=== PATIENT | male | born 1985 | race Caucasian/White ===

== ENCOUNTER 2018-05-20 09:44 | Emergency (ER) | payer MEDICAID ==
[~2018-05-20] VITALS: Ht 170.2 cm; Wt 79.4 kg
[2018-05-20 09:50] VITALS: BP_SYST 147
--- NOTE | 2018-05-20 09:50 | NUR ---
Pt placed in bed 6
--- NOTE | 2018-05-20 09:55 | NUR ---
ER at bedside examining patient.
[2018-05-20 10:18] VITALS: BP_SYST 147
--- NOTE | 2018-05-20 10:18 | NUR ---
Patient given written and verbal discharge instructions and verbalizes understanding. ER MD discussed with patient the results and treatment provided. Patient in stable condition. ID arm band removed. Rx of naproxen and tramadol given. Patient educated on pain management and to follow up with PMD. Pain Scale 5. Dr Harrison is aware, pain prescription was given and pt states will take medication at home. Opportunity for questions provided and answered.
== END 2018-05-20 10:18 | disposition home or self-care (01) ==
LOC: SED 09:44
DX: S46.911A Strain of unspecified muscle, fascia and tendon at shoulder and upper arm level, right arm, initial encounter (principal); R03.0 Elevated blood-pressure reading, without diagnosis of hypertension; Z86.79 Personal history of other diseases of the circulatory system; X50.0XXA Overexertion from strenuous movement or load, initial encounter; Y93.89 Activity, other specified; Y92.89 Other specified places as the place of occurrence of the external cause; Y99.8 Other external cause status
CPT/HCPCS: 99283

== ENCOUNTER 2018-05-27 11:25 | Emergency (ER) | payer MEDICAID ==
[~2018-05-27] VITALS: Ht 170.2 cm; Wt 79.4 kg
[2018-05-27 11:32] VITALS: BP_SYST 147
[2018-05-27 11:59] VITALS: BP_SYST 147
== END 2018-05-27 12:01 | disposition home or self-care (01) ==
LOC: SED 11:25
DX: K02.9 Dental caries, unspecified (principal)
CPT/HCPCS: 99283

== ENCOUNTER 2018-05-29 14:36 | Emergency (ER) | payer MEDICAID ==
[~2018-05-29] VITALS: Ht 170.2 cm; Wt 79.4 kg
[2018-05-29 14:36] VITALS: BP_SYST 140
[2018-05-29 16:00] VITALS: BP_SYST 134
== END 2018-05-29 16:01 | disposition home or self-care (01) ==
LOC: SED 14:36
DX: K08.89 Other specified disorders of teeth and supporting structures (principal)
CPT/HCPCS: 99283

== ENCOUNTER 2018-08-03 11:41 | Emergency (ER) | payer SELFPAY ==
[~2018-08-03] VITALS: Ht 170.2 cm; Wt 77.1 kg
[2018-08-03 11:50] VITALS: BP_SYST 140
--- NOTE | 2018-08-03 11:53 | NUR ---
Patient to ER bed 08 to gown for evaluation. Side rails up.
--- NOTE | 2018-08-03 11:57 | NUR ---
ER at bedside examining patient.
--- NOTE | 2018-08-03 12:11 | NUR ---
Pt AAOx4 ambulated into ED c/o 05/15 R shoulder pain x 5 days. Pt has hx of R rotator cuff injury and is concerned "there might be a broken bone or something." Pt has been taking ibuprofen with no relief. Skin pink dry and warm, breathing even and unlabored. No other injuries/complaints per pt/noted. Will continue to monitor.
--- NOTE | 2018-08-03 12:15 | NUR ---
Radiology at bedside
--- NOTE | 2018-08-03 12:40 | NUR ---
Sling provided. Cap refill <3 prior and post application
[2018-08-03 12:44] VITALS: BP_SYST 137
--- NOTE | 2018-08-03 12:44 | NUR ---
Patient given written and verbal discharge instructions and verbalizes understanding. ER MD Malave discussed with patient the results and treatment provided. Patient in stable condition. ID arm band removed. Rx of Tramadol given. Patient educated on pain management and to follow up with PMD. Pain Scale 0. Opportunity for questions provided and answered. Medication side effect fact sheet provided.
== END 2018-08-03 12:44 | disposition home or self-care (01) ==
LOC: SED 11:41
DX: S46.001A Unspecified injury of muscle(s) and tendon(s) of the rotator cuff of right shoulder, initial encounter (principal); R03.0 Elevated blood-pressure reading, without diagnosis of hypertension; Z86.79 Personal history of other diseases of the circulatory system; X50.1XXA Overexertion from prolonged static or awkward postures, initial encounter; Y93.89 Activity, other specified; Y92.89 Other specified places as the place of occurrence of the external cause; Y99.8 Other external cause status
CPT/HCPCS: 73030; 99283

== ENCOUNTER 2018-08-12 16:03 | Emergency (ER) | payer SELFPAY ==
[~2018-08-12] VITALS: Ht 170.2 cm; Wt 77.1 kg
[2018-08-12 16:32] VITALS: BP_SYST 140
[2018-08-12] MEDS ORDERED: KETOROLAC TROMETHAMINE 60 MG/2 ML VIAL IM ONE (17:00)
[2018-08-12 17:40] VITALS: BP_SYST 140
== END 2018-08-12 17:40 | disposition home or self-care (01) ==
LOC: SED 16:03
DX: M25.511 Pain in right shoulder (principal); R03.0 Elevated blood-pressure reading, without diagnosis of hypertension; Z86.79 Personal history of other diseases of the circulatory system
CPT/HCPCS: 96372; 99283; J1885

== ENCOUNTER 2018-12-15 18:37 | Emergency (ER) | payer OTHER ==
[~2018-12-15] VITALS: Ht 170.2 cm; Wt 80.7 kg
[2018-12-15 19:08] VITALS: BP_SYST 141
[2018-12-15] MEDS ORDERED: KETOROLAC TROMETHAMINE 60 MG/2 ML VIAL IM ONE (20:15)
[2018-12-15] MEDS ORDERED: cefTRIAXone 1 GM VIAL IM ONE (20:15)
[2018-12-15] MEDS ORDERED: LIDOCAINE 1%, 20 ML MDV 20 ML ONE (20:19)
[2018-12-15] MEDS ORDERED: HYDROcodone/ACETAMIN 10-325 MG TAB PO ONE (20:30)
[2018-12-15] MEDS ORDERED: AMOXICILLIN 500 MG CAPSULE PO ONE (20:30)
[2018-12-15 20:51] VITALS: BP_SYST 134
== END 2018-12-15 20:57 | disposition home or self-care (01) ==
LOC: SED 18:37
DX: S02.5XXA Fracture of tooth (traumatic), initial encounter for closed fracture (principal); X58.XXXA Exposure to other specified factors, initial encounter; Y93.89 Activity, other specified; Y92.89 Other specified places as the place of occurrence of the external cause; Y99.8 Other external cause status
CPT/HCPCS: 99283; J0696; J1885; J2001

== ENCOUNTER 2019-08-26 11:11 | Emergency (ER) | payer OTHER ==
[~2019-08-26] VITALS: Ht 170.2 cm; Wt 83.9 kg
[2019-08-26 11:16] VITALS: BP_SYST 155
--- NOTE | 2019-08-26 11:19 | NUR ---
Patient to ER bed 08 to gown for evaluation. Side rails up.
--- NOTE | 2019-08-26 11:22 | NUR ---
Patient arrived to the ED c/o pain on his right lower molar that started yesterday - Taking Alpine for it. Denied any chest pain, headache, or shortness of breath. Denied fevers, chills, nausea, or vomiting. Patient is alert and oriented x4, respirations even and unlabored, speaking in full sentences, and ambulating with a steady gait. VSS, pain level 9/10. Informed of approximate wait time. Instructed to notify ED staff for any changes in condition or worsening of symptoms. Patient verbalized understanding.
--- NOTE | 2019-08-26 11:34 | NUR ---
ER Dr. Harrison at bedside examining patient.
--- NOTE | 2019-08-26 11:43 | NUR ---
Patient given written and verbal discharge instructions and verbalizes understanding. ER MD discussed with patient the results and treatment provided. Patient in stable condition. ID arm band removed. Rx of Tylenol #3, Motrin 600mg, and Clindamycin given. Patient educated on pain management and to follow up with PMD. Pain Scale 1/10. Opportunity for questions provided and answered. Medication side effect fact sheet provided.
[2019-08-26 11:44] VITALS: BP_SYST 134
== END 2019-08-26 11:44 | disposition home or self-care (01) ==
LOC: SED 11:11
DX: K04.7 Periapical abscess without sinus (principal); I10 Essential (primary) hypertension
CPT/HCPCS: 99283

== ENCOUNTER 2019-09-18 15:52 | Emergency (ER) | payer OTHER ==
[~2019-09-18] VITALS: Ht 170.2 cm; Wt 83.9 kg
[2019-09-18 16:06] VITALS: BP_SYST 118
[2019-09-18] MEDS ORDERED: traMADol HCL HCL 50 MG TABLET (ULTRAM) PO ONE (17:30)
[2019-09-18 17:53] VITALS: BP_SYST 118
== END 2019-09-18 17:53 | disposition home or self-care (01) ==
LOC: SED 15:52
DX: K04.7 Periapical abscess without sinus (principal); I10 Essential (primary) hypertension; Z86.73 Personal history of transient ischemic attack (TIA), and cerebral infarction without residual deficits
CPT/HCPCS: 99283; J7030

== ENCOUNTER 2023-07-15 16:58 | Emergency (ER) | payer MEDICAID, OTHER ==
[~2023-07-15] VITALS: Ht 170.2 cm; Wt 81.2 kg
[2023-07-15 17:14] VITALS: BP_SYST 140; PULSE 92; RESP 18; TEMP 97.8; O2SAT 98
[2023-07-15] MEDS ORDERED: AMOX500C2 PO (17:15)
[2023-07-15] MEDS ORDERED: TRAM50TA2 PO (17:15)
[2023-07-15] MEDS ORDERED: IBUP-1971 PO (17:15)
[2023-07-15 17:25] VITALS: BP_SYST 140; PULSE 92; RESP 18; TEMP 97.8; O2SAT 98
== END 2023-07-15 17:25 | disposition home or self-care (01) ==
LOC: SED 16:58
DX: K04.7 Periapical abscess without sinus (principal); I10 Essential (primary) hypertension
CPT/HCPCS: 99283

== ENCOUNTER 2023-11-26 20:20 | Emergency (ER) | payer MEDICAID ==
[~2023-11-26] VITALS: Ht 170.2 cm; Wt 85.7 kg
[~2023-11-26 20:20] MED LIST: AMOX500C2 PO; IBUP-1971 PO; TRAM50TA2 PO
[2023-11-26 20:54] VITALS: BP_SYST 147; PULSE 94; RESP 16; TEMP 97.8; O2SAT 97
[2023-11-26] MEDS: KETOROLAC TROMETHAMINE 60 MG/2 ML VIAL IM ONE (21:06)
[2023-11-26] MEDS: MORPHINE 4 MG INJ. 4 MG/ML VIAL IM ONE (21:14)
[2023-11-26] MEDS: HYDROcodone/ACETAMIN 10-325 MG TAB PO ONE (22:34)
[2023-11-26] MEDS ORDERED: HYDR-3927 PO (23:08)
[2023-11-26] MEDS ORDERED: PENI500T PO (23:08)
[2023-11-26] MEDS ORDERED: ACET1TAB93 PO (23:15)
[2023-11-26 23:18] VITALS: BP_SYST 119; PULSE 88; RESP 16; TEMP 98.4; O2SAT 97
== END 2023-11-26 23:18 | disposition home or self-care (01) ==
LOC: SED 20:20
DX: S02.5XXA Fracture of tooth (traumatic), initial encounter for closed fracture (principal); I10 Essential (primary) hypertension; Z88.6 Allergy status to analgesic agent; Z79.899 Other long term (current) drug therapy; X58.XXXA Exposure to other specified factors, initial encounter; Y93.89 Activity, other specified; Y92.89 Other specified places as the place of occurrence of the external cause; Y99.8 Other external cause status
CPT/HCPCS: 99283; 96372; J1885; J2270

== ENCOUNTER 2023-12-19 15:57 | Emergency (ER) | payer MEDICAID ==
[~2023-12-19] VITALS: Ht 170.2 cm; Wt 74.8 kg
[~2023-12-19 15:57] MED LIST changes: +PENI500T PO
[2023-12-19 16:00] VITALS: BP_SYST 138; PULSE 84; RESP 18; TEMP 98.5; O2SAT 99
[2023-12-19] MEDS ORDERED: ACET1TAB93 PO (16:31)
[2023-12-19] MEDS ORDERED: CLIN-142 PO (16:31)
== END 2023-12-19 16:47 | disposition home or self-care (01) ==
LOC: SED 15:57
DX: K04.7 Periapical abscess without sinus (principal); I10 Essential (primary) hypertension; Z88.5 Allergy status to narcotic agent; Z79.899 Other long term (current) drug therapy; Z79.2 Long term (current) use of antibiotics
CPT/HCPCS: 99283